=== PATIENT | male | born 1940 | race Caucasian/White ===

== ENCOUNTER → 2018-07-08 | Outpatient (REF) | payer MEDICARE, OTHER | LOC: M SFHCLERA 14:49 | DX: R05 Cough (principal) | CPT/HCPCS: 87205 ==

== ENCOUNTER → 2018-07-08 | Outpatient (CLI) | payer MEDICARE, OTHER | LOC: M LRY 14:55 | DX: R05 Cough (principal) | CPT/HCPCS: 71046; 87070 ==

== ENCOUNTER → 2018-07-10 | Outpatient (REF) | payer MEDICARE, OTHER | LOC: M SFHCLUC 07-12 16:41 | DX: R05 Cough (principal) | CPT/HCPCS: 87184; 87186; 87205 ==

== ENCOUNTER 2022-06-16 15:33 | Inpatient (IN) | payer MEDICARE, OTHER ==
[~2022-06-16] VITALS: Ht 182.9 cm; Wt 63.9 kg
[2022-06-16 16:33] LABS: BASO # 0.1 10^3/uL (0.0-0.2); BASO % 0.9 % (0.0-1.0); EOS # 0.6 10^3/uL (0.0-0.5); EOS % 8.5 % (0.0-3.0); HEMATOCRIT 38.8 % (42.0-52.0); HEMOGLOBIN 12.4 g/dl (13.5-17.5); LYMPH # 0.8 10^3/uL (1.5-5.0); LYMPH % 12.7 % (24.0-44.0); MEAN CORPUSCULAR HEMOGLOBIN 30.5 pg (27.0-33.0); MEAN CORPUSCULAR VOLUME 95.3 fl (80.0-96.0); MONO # 0.7 10^3/uL (0.0-0.8); MONO % 10.7 % (2.0-8.0); NEUTROPHILS # 4.4 10^3/uL (1.5-8.5); NEUTROPHILS % 65.8 % (36.0-66.0); PLATELET COUNT, AUTOMATED 255 10^3/uL (150-450); RED BLOOD COUNT 4.07 10^6/uL (4.30-6.10); WHITE BLOOD COUNT 6.6 10^3/uL (4.0-10.0)
[2022-06-16] MEDS ORDERED: RAPA4CAP PO (16:41)
[2022-06-16] MEDS ORDERED: ELIQ5TAB PO (16:41)
[2022-06-16] MEDS ORDERED: GABA-283 PO (16:41)
[2022-06-16] MEDS ORDERED: SING4CHW9 PO (16:41)
[2022-06-16] MEDS ORDERED: TREL1AER PO (16:41)
[2022-06-16 16:57] LABS: BLOOD UREA NITROGEN 16 MG/DL (7-18); CALCIUM LEVEL 8.8 MG/DL (8.8-10.2); CARBON DIOXIDE LEVEL 28 MEQ/L (21-32); CHLORIDE LEVEL 107 MEQ/L (98-107); GLOMERULAR FILTRATION RATE > 60.0 (>35); GLUCOSE, FASTING 92 MG/DL (70-100); POTASSIUM SERUM 4.5 MEQ/L (3.5-5.1); SODIUM LEVEL 140 MEQ/L (136-145)
[2022-06-16 17:16] VITALS: O2SAT 85
[2022-06-16] MEDS ORDERED: AZITHROMYCIN INJ 500 MG, VIAL MATE ADAPTER 1 EACH in NS 250 ML IV ONE (17:20)
[2022-06-16] MEDS ORDERED: cefTRIAXone SOD 1 GM in D5W MINI-BAG PLUS 50 ML IV ONE (17:20)
[2022-06-16 18:14] LABS: ALBUMIN 2.7 GM/DL (3.2-5.2); BILIRUBIN,DIRECT 0.1 MG/DL (0.0-0.2); BILIRUBIN,TOTAL 0.4 MG/DL (0.2-1.0); TOTAL PROTEIN 6.1 GM/DL (6.4-8.2)
[2022-06-16] MEDS ORDERED: MONT10TA97 PO (19:17)
[2022-06-16] MEDS: SYMBICORT 160/4.5MCG INHALER 6GM INH SCH (20:00)
[2022-06-16] MEDS ORDERED: B-12100021 PO (20:20)
[2022-06-16] MEDS ORDERED: CENT1TAB12 PO (20:20)
[2022-06-16] MEDS ORDERED: ALPR0.25 PO (20:20)
[2022-06-16] MEDS ORDERED: HOME MED LIST COMPLETE! XX SCH (20:20)
[2022-06-16] MEDS ORDERED: PRESCAP PO (20:20)
[2022-06-16] MEDS ORDERED: VITA100T14 PO (20:20)
[2022-06-16] MEDS ORDERED: ALLE1TAB23 PO (20:20)
[2022-06-16 20:51] LABS: INR 1.1; PROTHROMBIN TIME 14.6 SECONDS (12.7-14.5)
[2022-06-16] MEDS: GABAPENTIN 400MG CAP PO SCH (21:45)
[2022-06-16] MEDS: APIXABAN 5 MG TAB (ELIQUIS) PO SCH (21:45)
[2022-06-16] MEDS: MONTELUKAST 10 MG TAB PO SCH (21:45)
[2022-06-16 21:58] VITALS: BP 120/75
[2022-06-16] MEDS: DOXYCYCLINE HYCLATE 100 MG in D5W MINI-BAG PLUS 100 ML IV SCH (22:35)
[2022-06-16 23:02] VITALS: BP 104/72
[2022-06-17 05:29] VITALS: BP 105/65
[2022-06-17 06:19] LABS: HEMATOCRIT 37.8 % (42.0-52.0); HEMOGLOBIN 12.1 g/dl (13.5-17.5); MEAN CORPUSCULAR HEMOGLOBIN 30.5 pg (27.0-33.0); MEAN CORPUSCULAR VOLUME 95.2 fl (80.0-96.0); PLATELET COUNT, AUTOMATED 281 10^3/uL (150-450); RED BLOOD COUNT 3.97 10^6/uL (4.30-6.10); WHITE BLOOD COUNT 7.5 10^3/uL (4.0-10.0)
[2022-06-17 07:00] LABS: ALBUMIN 2.3 GM/DL (3.2-5.2); ALT/SGPT 42 U/L (12-78); BILIRUBIN,TOTAL 0.3 MG/DL (0.2-1.0); BLOOD UREA NITROGEN 15 MG/DL (7-18); CALCIUM LEVEL 8.8 MG/DL (8.8-10.2); CARBON DIOXIDE LEVEL 31 MEQ/L (21-32); CHLORIDE LEVEL 106 MEQ/L (98-107); CREATININE FOR GFR 0.95 MG/DL (0.70-1.30); GLOMERULAR FILTRATION RATE > 60.0 (>35); GLUCOSE, FASTING 84 MG/DL (70-100); POTASSIUM SERUM 4.5 MEQ/L (3.5-5.1); SODIUM LEVEL 142 MEQ/L (136-145); TOTAL PROTEIN 5.5 GM/DL (6.4-8.2)
[2022-06-17] MEDS: SYMBICORT 160/4.5MCG INHALER 6GM INH SCH ×2 (07:19→20:01)
[2022-06-17] MEDS: TIOTROPIUM INHALER/CAPSULE (SPIRIVA) INH SCH (07:20)
[2022-06-17] MEDS: DOXYCYCLINE HYCLATE 100 MG in D5W MINI-BAG PLUS 100 ML IV SCH ×2 (08:12→21:52)
[2022-06-17] MEDS: GABAPENTIN 400MG CAP PO SCH ×3 (08:12→20:51)
[2022-06-17] MEDS: APIXABAN 5 MG TAB (ELIQUIS) PO SCH ×2 (08:12→20:50)
[2022-06-17] MEDS: TAMSULOSIN 0.4 MG CAP PO SCH (12:04)
[2022-06-17 14:00] VITALS: BP 98/58
[2022-06-17] MEDS ORDERED: NS 500 ML IV ONE (14:30)
[2022-06-17] MEDS ORDERED: cefTRIAXone SOD 1 GM in D5W MINI-BAG PLUS 50 ML IV SCH (18:00)
[2022-06-17 20:26] VITALS: BP 103/69
[2022-06-17] MEDS: MONTELUKAST 10 MG TAB PO SCH (20:51)
[2022-06-18 05:15] VITALS: BP 106/68
[2022-06-18] MEDS: SYMBICORT 160/4.5MCG INHALER 6GM INH SCH (07:12)
[2022-06-18] MEDS: TIOTROPIUM INHALER/CAPSULE (SPIRIVA) INH SCH (07:12)
[2022-06-18] MEDS: DOXYCYCLINE HYCLATE 100 MG in D5W MINI-BAG PLUS 100 ML IV SCH (08:11)
[2022-06-18] MEDS: APIXABAN 5 MG TAB (ELIQUIS) PO SCH (08:12)
[2022-06-18] MEDS: GABAPENTIN 400MG CAP PO SCH (08:12)
[2022-06-18] MEDS ORDERED: CEFD300C PO (09:22)
[2022-06-18] MEDS ORDERED: DOXY100C3 PO (09:22)
[2022-06-18] MEDS: TAMSULOSIN 0.4 MG CAP PO SCH (12:02)
== END 2022-06-18 12:24 | disposition home or self-care (01) | DRG 194 ==
LOC: M ED 15:33 → M ED INP 18:18 → M MSPAV 21:59
PROVIDERS: ADMIT Internal Medicine; ATTEND Internal Medicine
DX: J18.9 Pneumonia, unspecified organism (principal); J44.0 Chronic obstructive pulmonary disease with (acute) lower respiratory infection; I10 Essential (primary) hypertension; I48.91 Unspecified atrial fibrillation; I25.10 Atherosclerotic heart disease of native coronary artery without angina pectoris; Z95.5 Presence of coronary angioplasty implant and graft; Z95.0 Presence of cardiac pacemaker; Z87.891 Personal history of nicotine dependence; Z20.822 Contact with and (suspected) exposure to COVID-19; Z79.01 Long term (current) use of anticoagulants; Z79.899 Other long term (current) drug therapy; Z88.8 Allergy status to other drugs, medicaments and biological substances; Z91.040 Latex allergy status; Z91.010 Allergy to peanuts

== ENCOUNTER → 2023-06-09 | Outpatient (REF) | payer MEDICARE, OTHER ==
[~2023-06-09] MED LIST: ALLE1TAB23 PO; ALPR0.25 PO; B-12100021 PO; CEFD300C PO; CENT1TAB12 PO; DOXY100C3 PO; ELIQ5TAB PO; GABA-283 PO; MONT10TA97 PO; MONT4TAB2 PO; PRESCAP PO; RAPA4CAP PO; TREL1AER PO; VITA100T14 PO
== END ==
LOC: M LAB REF 16:11
PROVIDERS: ATTEND Physician Assistant
DX: R30.0 Dysuria (principal)

== ENCOUNTER 2025-07-01 16:47 | Emergency (ER) | payer MEDICARE, OTHER ==
[~2025-07-01] VITALS: Ht 182.9 cm; Wt 57.6 kg
[~2025-07-01 16:47] MED LIST changes: -ALLE1TAB23 PO; +FEXO-63 PO; -GABA-283 PO; +GABA-284 PO; -VITA100T14 PO; +VITA100T69 PO
[2025-07-01 21:03] VITALS: BP 155/85; TEMP 97.4; O2SAT 97; O2SAT 99
[2025-07-01] MEDS ORDERED: NIRM1TAB16 PO (21:10)
[2025-07-01] MEDS ORDERED: AMOX875T2 PO (21:43)
[2025-07-01] MEDS: AUGMENTIN 875 MG TAB PO ONE (21:48)
== END 2025-07-01 22:01 | disposition home or self-care (01) ==
LOC: M ED 16:47
DX: U07.1 COVID-19 (principal); J12.82 Pneumonia due to coronavirus disease 2019; I48.91 Unspecified atrial fibrillation; I10 Essential (primary) hypertension; J45.909 Unspecified asthma, uncomplicated; Z95.5 Presence of coronary angioplasty implant and graft; Z95.0 Presence of cardiac pacemaker; Z79.01 Long term (current) use of anticoagulants; Z79.899 Other long term (current) drug therapy; Z88.8 Allergy status to other drugs, medicaments and biological substances; Z91.040 Latex allergy status; Z91.010 Allergy to peanuts